=== PATIENT | female | born 1990 | race Caucasian/White ===

== ENCOUNTER 2022-02-11 11:54 | Outpatient (CLI) | payer OTHER, SELFPAY ==
[2022-02-11 13:03] LABS: Glucose 75GTT - Fasting 80 mg/dL (70-99)
[2022-02-11 15:12] LABS: Glucose 75GTT - 30 minutes 109 mg/dL (100-160)
[2022-02-11 15:12] LABS: Glucose 75GTT - 120 minutes 93 mg/dL (70-140)
[2022-02-11 15:13] LABS: Glucose 75GTT - 60 minutes 109 mg/dL (100-160)
[2022-02-11 15:20] LABS: Insulin 75GTT - 60 min 20.8 mU/L (Not Estab)
[2022-02-11 15:20] LABS: Insulin 75GTT - 30 MIN 17.6 mU/L (Not Estab.)
[2022-02-11 15:20] LABS: Insulin 75GTT - 120 min 16.6 mU/L (Not Estab.)
[2022-02-19 09:09] LABS: Anti-Mullerian Hormone,Serum 6.52 ng/mL (.)
== END 2022-02-11 23:59 | disposition home or self-care (01) ==
PROVIDERS: Visit Provider Obstetrics & Gynecology
DX: E27.9 Disorder of adrenal gland, unspecified (principal); E07.9 Disorder of thyroid, unspecified; E28.39 Other primary ovarian failure
CPT/HCPCS: 36415; 82951; 82952; 83516; 83525